=== PATIENT | male | born 1950 | race Caucasian/White ===

== ENCOUNTER → 2019-08-30 10:09 | Outpatient (CLI) | payer MEDICARE ==
[2019-02-03 08:55] VITALS: BMI 32.1
[~2019-08-30 10:09] MED LIST: ASPIRIN81 MG PO; PLAVIX75 MG PO; PRAVACHOL40 MG PO; TOPROL XL25 MG PO; TOZAL SOFTGEL1 EACH PO
--- NOTE | 2019-09-04 17:02 | EC ---
PATIENT:JACOB KLEIN DATE OF SERVICE: 08/30/19 SEX: M MEDICAL RECORD: [id number] DATE OF : 54 [facility] [place] AGE OF PATIENT: 69 ADMISSION DATE: 08/30/19 REFERRING PHYSICIAN: INTERPRETING PHYSICIAN: CRIS MCGOWAN MD ECHOCARDIOGRAM REPORT ECHO CHARGES 4 ECHO COMPLETE Date: 08/30/19 CLINICAL DIAGNOSIS: ASSESS EF/ HX CAD, ISCHEMIC CARIOMYOPATHY ECHOCARDIOGRAPHIC MEASUREMENTS (adult normal given) AC root (d.<3.7cm) 3.8 cm LV Septum d (<1.2 cm> 1.0 cm Valve Excursion 1.4 cm LV Septum (systole) 1.1 cm Left Atria (s.<4.0cm> 4.2 cm LVPW d(<1.2cm) 1.5 cm RV (d.<2.3cm) 4.5 cm LVPW (sytole) 1.6 cm LV diastole(<5.6CM) 6.7 cm MV E-F(>70mm/sec) cm LV systole 5.1 cm LVOT Diameter 2.0 cm MV exc.(>10mm) 2.0 cm Est.ejection fraction (50-75%) % DOPPLER: LVIT cm/sec A 87.0 cm/sec E 81.0 cm/sec LA cm/sec RVSP 25 mmHg LVOT 117 cm/sec AOP1/2T m/s Asc. Ao 143 cm/sec RVOT 70 cm/sec RA cm/sec PA 159 cm/sec AV Gradient Peak 8.13 mmHg AV Mean 4.39 mmHg AV Area 2.8 cm MV Gradient Peak 3.07 mmHg MV Mean 1.28 mmHg MV Area cm COMMENTS: [employer] Worker: 2 LISA MORGAN [employer] Developer: 1 Dr. Mcgowan TAPE# PACS Pericardial Effusion N DATE OF SERVICE: FINDINGS: 1. Left ventricular chamber size is within normal limits. Left ventricular systolic function is normal. Overall ejection fraction estimated at 50%. 2. Left atrium is enlarged at 4.2 cm. Right atrium and right ventricular chamber sizes are as well mildly dilated. 3. Valvular structure have normal structure and motion. 4. Doppler interrogation reveals mild mitral regurgitation, mild tricuspid regurgitation, no other valvular insufficiency or stenosis. Pulmonary systolic ECHOCARDIOGRAM REPORT [id number] JACOB KLEIN pressure estimated at 25 mmHg. 5. No evidence of pericardial effusion or left ventricular thrombus. 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
== END | disposition home or self-care (01) ==
LOC: D.HCCECHO 10:00
PROVIDERS: ATTEND Internal Medicine Interventional Cardiology
DX: I25.10 Atherosclerotic heart disease of native coronary artery without angina pectoris (principal)

== ENCOUNTER 2021-03-30 15:07 | Emergency (ER) | payer MEDICARE ==
[2019-02-03 08:55] VITALS: Ht 180.3 cm; Wt 99.5 kg
[~2021-03-30] VITALS: Ht 180.3 cm; Wt 99.5 kg
[2021-03-30 15:09] VITALS: BP 112/49
[2021-03-30 15:40] LABS: BASOPHILS 0.5 % (0-2); EOSINOPHILS 1.4 % (0-7); HEMATOCRIT 42.8 % (42.0-54.0); HEMOGLOBIN 14.7 g/dL (13.5-17.5); LYMPHOCYTES 16.2 % (15-50); MCH 33.2 pg (26.0-34.0); MCHC 34.3 g/dL (31.0-37.0); MCV 96.8 fL (80.0-100.0); MEAN PLATELET VOLUME 8.9 fL (7.4-10.4); MONOCYTES 5.3 % (2-11); NEUTROPHILS 76.6 % (40-80); PLATELET COUNT 158 10x3/uL (130-400); RBC 4.42 10x6/uL (4.20-6.10); RDW 14.2 % (11.5-14.5); WBC 9.8 10x3/uL (4.8-10.8)
[2021-03-30 15:45] LABS: CALC OSMOLALITY 287 mosm/kg (275-300); CALCIUM 8.6 mg/dL (8.5-10.1); CARBON DIOXIDE 25.4 mmol/L (21.0-32.0); CHLORIDE - SERUM 107 mmol/L (98-107); GLUCOSE 111 mg/dL (74-106); POTASSIUM - SERUM 3.7 mmol/L (3.5-5.1); SODIUM 143 mmol/L (136-145); UREA NITROGEN 18 mg/dL (7-18); eGFR NON AFRICAN AMERICAN 79 mL/min (90-120)
[2021-03-30 15:56] LABS: ALBUMIN 3.7 g/dL (3.4-5.0); ALKALINE PHOSPHATASE 63 U/L (30-120); ALT (SGPT) 22 U/L (10-68); BILIRUBIN - TOTAL 0.82 mg/dL (0.2-1.3); CREATINE KINASE 51 UL (21-232); PROTEIN - SERUM 6.9 g/dL (6.4-8.2)
[2021-03-30 15:58] LABS: TROPONIN-I < 0.017 ng/mL (0.000-0.060)
[2021-03-30 16:32] LABS: BACTERIA FEW HPF (<MOD); BILIRUBIN NEGATIVE (NEGATIVE); KETONE 1+ mg/dL (< 1+); NITRITE NEGATIVE (NEGATIVE); PH 5.5 (5.0-8.0); SQUAMOUS EPITHELIAL <1 HPF (0-4); UROBILINOGEN 3 mg/dL (< 2); WHITE CELLS - URINE 3 HPF (0-1)
== END 2021-03-30 16:53 | disposition home or self-care (01) ==
LOC: D.ER 15:07
PROVIDERS: Family Medicine
DX: R42 Dizziness and giddiness (principal); X30.XXXA Exposure to excessive natural heat, initial encounter; F17.210 Nicotine dependence, cigarettes, uncomplicated